=== PATIENT | female | born 1940 | race Caucasian/White ===

== ENCOUNTER 2017-03-23 14:12 | Emergency (ER) | payer MEDICARE, MEDICAID ==
[2017-03-23 14:33] VITALS: O2SAT 99
--- NOTE | 2017-03-23 14:48 | C.PDOC ---
History Of Present Illness 77 yr old female brought in via EMS, presents to the ER s/p trip and fall earlier today. Patient reports of right facial injury, laceration inside her mouth and exacerbation of left knee pain. 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 Reports she is s/p ACL repair in the left knee many years ago but has chronic pain and difficulty walking cause her to trip. Patient was weight bearing on scene. Denies LOC, vision changes, nausea , vomiting, neck pain, headache, weakness or numbness. 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) Past Medical History Reviewed: Historical Data, Nursing Documentation, Vital Signs Vital Signs: Last Vital Signs Temp 97.8 F 03/23/17 14:28 Pulse 99 H 03/23/17 14:28 Resp 18 03/23/17 14:28 BP 167/80 H 03/23/17 14:28 Pulse Ox 99 03/23/17 16:57 - Medical History PMH: Anemia (one yr ago), Asthma, HTN Surgical History: Tonsillectomy - [facility] Procedures EXCIS KNEE SEMILUN CARTL (10/26/13) INFLUENZA VACCINATION (04/07/14) OTHER REPAIR OF KNEE (10/26/13) PERCUTAN NEEDLE BIOPSY OF BREAST (12/27/03) VACCINATION NEC (04/07/14) Family History: States: No Known Family Hx - Social History Hx Tobacco Use: No Hx Alcohol Use: No Hx Substance Use: No - Immunization History Hx Tetanus Toxoid Vaccination: No Hx Influenza Vaccination: Yes Hx Pneumococcal Vaccination: Yes Review Of Systems Except As Marked, All Systems Reviewed And Found Negative. Constitutional: Positive for: Other ((+) right facial injuries) Eyes: Negative for: Vision Change ENT: Positive for: Other ((+) laceration inside mouth) Gastrointestinal: Negative for: Nausea, Vomiting Musculoskeletal: Positive for: Other ((+) exacerbation of left knee pain). Negative for: Neck Pain Neurological: Negative for: Weakness, Numbness, Headache Physical Exam - Physical Exam Appears: Non-toxic, No Acute Distress Skin: Warm, Dry, Other ((+) right mid facial swelling with echymosis) Head: Atraumatic, Normacephalic, Other (normal scalp, normal forehead) Eye(s): bilateral: Normal Inspection, PERRL, EOMI Oral Mucosa: Moist, Other ((+) buccal laceration, good approximation) Lips: Other ((+) superficial flat flap to the right upper lip, intraoral) Teeth: Other (Poor diffuse dentition. No dental malaligment. Jaw normal ROM.) Throat: Normal, No Erythema, No Exudate, No Drooling Neck: Normal, Normal ROM, No Midline Cervical Tenderness, No Paracervical Tenderness, Supple Chest: Symmetrical, No Tenderness Cardiovascular: Rhythm Regular, No Murmur Respiratory: Normal Breath Sounds, No Rales, No Rhonchi, No Stridor, No Wheezing Extremity: Normal ROM (left knee), Other (left knee, skin intact) Neurological/Psych: Oriented x3, Normal Speech, Normal Motor, Normal Sensation, Normal Reflexes ED Course And Treatment O2 Sat by Pulse Oximetry: 99 (RA) Pulse Ox Interpretation: Normal - Other Rad X-Ray - Left Knee X-Ray: Interpreted by Me, Viewed By Me Interpretation: NEG - CT Scan/US CT - Head Other Rad Studies (CT/US): Read By Radiologist, Radiology Report Reviewed CT/US Interpretation: PROCEDURE: CT HEAD WITHOUT CONTRAST. HISTORY: TRAUMA. COMPARISON: None available. TECHNIQUE: Axial computed tomography images were obtained through the head/brain without intravenous contrast. Radiation dose: Total exam DLP = 767.76 mGy-cm. This CT exam was performed using one or more of the following dose reduction techniques: Automated exposure control, adjustment of the mA and/or kV according to patient size, and/or use of iterative reconstruction technique. FINDINGS: HEMORRHAGE: No intracranial hemorrhage. BRAIN: No mass effect or edema. Small left colonic infarct, old. Mild cortical atrophy, small vessel disease. Cerebellar atrophy also identified. VENTRICLES: Unremarkable. No hydrocephalus. CALVARIUM: Unremarkable. PARANASAL SINUSES: Ten sinusitis, chronic ethmoid bilateral maxillary, sphenoid and frontal sinusitis without air-fluid level. MASTOID AIR CELLS: Unremarkable as visualized. No inflammatory changes. OTHER FINDINGS: None. IMPRESSION: No acute intracranial abnormalities. No significant findings to account for the clinical presentation. Additional benign and/or incidental findings described above. CT - Maxillofacial Other Rad Studies (CT/US): Read By Radiologist, Radiology Report Reviewed CT/US Interpretation: PROCEDURE: CT MAXILLOFACIAL BONES WITHOUT CONTRAST. HISTORY: TRAUMA. COMPARISON: None. TECHNIQUE: Contiguous axial CT images of the maxillofacial bones were obtained. Coronal and sagittal reformats were generated. 3D volumetric imaging. Radiation dose: Total exam DLP = 687.90 mGy -cm. This CT exam was performed using one or more of the following dose reduction techniques: Automated exposure control, adjustment of the mA and/or kV according to patient size, and/or use of iterative reconstruction technique. FINDINGS: NASAL BONES: Unremarkable. ORBITS: Unremarkable. PARANASAL SINUSES/ MASTOIDS: Chronic pansinusitis without evidence of acute sinusitis. MAXILLA: Unremarkable. MANDIBLE/ TEMPOROMANDIBULAR JOINTS: Unremarkable. SKULL BASE: Unremarkable. TEMPORAL BONES: Middle ears and mastoid grossly unremarkable. OTHER FINDINGS: Soft tissue swelling infraorbital region right side only. This we categorized as mild. IMPRESSION: Mild focal soft tissue swelling right infraorbital region. Chronic pansinusitis. Progress - Re-Evaluation Re-evaluation Note: 03/23/17 15:13 PT GIVEN OPTION FOR INTRAORAL LAC REPAIR VS CONSERVATIVE TREATMENT, PROCEDURE DESCRIBED. PT VOICES UNDERSTANDING AND DOES NOT WISH LAC REPAIR. ADVISED COLD WATER SWISH/SPIT, SOFT FOODS, FU DENTAL 03/23/17 17:25 FEELS BETTER. WISHES DC HOME. - Data Reviewed Data Reviewed: Diagnostic imaging Medical Decision Making Medical Decision Making: PLAN: * CT - Head, Maxillofacial * X-Ray - Left Knee * Motrin PO * Tylenol PO Disposition Counseled Patient/Family Regarding: Studies Performed, Diagnosis, Need For Followup - Disposition Referrals: YOUR,PMD [Other] Disposition: HOME/ ROUTINE Disposition Time: 17:25 Condition: IMPROVED Additional Instructions: ICE TO AFFECTED AREAS. MOTRIN, TYLENOL DIRECTED FOR PAIN. FOLLOW UP WITH YOUR DENTIST. RETURN IF WORSENING SYMPTOMS ICE WATER GARGLES TO SWELLING. SOFT FOODS. TAKE ANTIBIOTICS PRESCRIBED. Prescriptions: Amoxicillin [Amoxil 500 mg Cap] 500 mg PO BID #14 cap Instructions: Facial Contusion (ED), Knee Sprain (ED) Forms: [employer] (Georgian) - Clinical Impression Clinical Impression: Intraoral laceration, Facial contusion, Knee sprain - Scribe Statement The provider has reviewed the documentation as recorded by the Yanet Chavez Provider Attestation: All medical record entries made by the Scribe were at my direction and personally dictated by me. I have reviewed the chart and agree that the record accurately reflects my personal performance of the history, physical exam, medical decision making, and the department course for this patient. I have also personally directed, reviewed, and agree with the discharge instructions and disposition.
--- NOTE | 2017-03-23 15:21 | RAD ---
PROCEDURE: Left Knee Radiographs. HISTORY: Pain. No history of recent/ related trauma provided COMPARISON: 04/12/2014. FINDINGS: BONES: No acute fracture. No acute fracture. Proliferative hypertrophic changes emanating from the femoral condyle and tibial plateau regions. Subchondral lucencies identified medial femoral condyle and medial tibial plateau. JOINTS: Progressive degenerative changes primarily affecting medial compartment. JOINT EFFUSION: None. OTHER FINDINGS: None. IMPRESSION: Progressive degenerative changes primarily affecting medial compartment. No acute abnormalities. Concordant results with the preliminary interpretation rendered by the emergency department physician procedure.
--- NOTE | 2017-03-23 16:40 | CT ---
PROCEDURE: CT HEAD WITHOUT CONTRAST. HISTORY: TRAUMA COMPARISON: None available. TECHNIQUE: Axial computed tomography images were obtained through the head/brain without intravenous contrast. Radiation dose: Total exam DLP = 767.76 mGy-cm. This CT exam was performed using one or more of the following dose reduction techniques: Automated exposure control, adjustment of the mA and/or kV according to patient size, and/or use of iterative reconstruction technique. FINDINGS: HEMORRHAGE: No intracranial hemorrhage. BRAIN: No mass effect or edema. Small left colonic infarct, old. Mild cortical atrophy, small vessel disease. Cerebellar atrophy also identified. VENTRICLES: Unremarkable. No hydrocephalus. CALVARIUM: Unremarkable. PARANASAL SINUSES: Ten sinusitis, chronic ethmoid bilateral maxillary, sphenoid and frontal sinusitis without air-fluid level. MASTOID AIR CELLS: Unremarkable as visualized. No inflammatory changes. OTHER FINDINGS: None. IMPRESSION: No acute intracranial abnormalities. No significant findings to account for the clinical presentation. Additional benign and/or incidental findings described above.
--- NOTE | 2017-03-23 16:48 | CT ---
PROCEDURE: CT MAXILLOFACIAL BONES WITHOUT CONTRAST HISTORY: TRAUMA COMPARISON: None TECHNIQUE: Contiguous axial CT images of the maxillofacial bones were obtained. Coronal and sagittal reformats were generated. 3D volumetric imaging. Radiation dose: Total exam DLP = 687.90 mGy-cm. This CT exam was performed using one or more of the following dose reduction techniques: Automated exposure control, adjustment of the mA and/or kV according to patient size, and/or use of iterative reconstruction technique. FINDINGS: NASAL BONES: Unremarkable. ORBITS: Unremarkable. PARANASAL SINUSES/ MASTOIDS: Chronic pansinusitis without evidence of acute sinusitis. MAXILLA: Unremarkable. MANDIBLE/ TEMPOROMANDIBULAR JOINTS: Unremarkable. SKULL BASE: Unremarkable. TEMPORAL BONES: Middle ears and mastoid grossly unremarkable. OTHER FINDINGS: Soft tissue swelling infraorbital region right side only. This we categorized as mild. IMPRESSION: Mild focal soft tissue swelling right infraorbital region. Chronic pansinusitis.
[2017-03-23 17:31] VITALS: BP 154/97; PULSE 98; RESP 20; TEMP 97.9
== END 2017-03-23 17:46 | disposition home or self-care (01) ==
LOC: C.ER 14:12
DX: S00.83XA Contusion of other part of head, initial encounter (principal); S01.512A Laceration without foreign body of oral cavity, initial encounter; S83.92XA Sprain of unspecified site of left knee, initial encounter; W01.0XXA Fall on same level from slipping, tripping and stumbling without subsequent striking against object, initial encounter